=== PATIENT | female | born 1995 | race Two or more races ===

== ENCOUNTER 2023-12-08 09:08 | Observation (INO) | payer OTHER ==
[2023-12-08] MEDS ORDERED: PREN-96 PO (10:23)
== END 2023-12-08 10:45 | disposition home or self-care (01) ==
LOC: LDRP 09:08
PROVIDERS: ADMIT Obstetrics & Gynecology; ATTEND Obstetrics & Gynecology
DX: O24.419 Gestational diabetes mellitus in pregnancy, unspecified control (principal); Z3A.38 38 weeks gestation of pregnancy; Z88.0 Allergy status to penicillin
CPT/HCPCS: 59025; 76818; 81002; 82948; 82962; 94760; G0378

== ENCOUNTER 2023-12-15 10:03 | Observation (INO) | payer OTHER ==
[~2023-12-15 10:03] MED LIST: PREN-96 PO
== END 2023-12-15 11:28 | disposition home or self-care (01) ==
LOC: LDRP 10:03
PROVIDERS: ADMIT Obstetrics & Gynecology; ATTEND Obstetrics & Gynecology
DX: O24.419 Gestational diabetes mellitus in pregnancy, unspecified control (principal); Z3A.39 39 weeks gestation of pregnancy
CPT/HCPCS: 59025; 76818; 81002; 82948; 82962; 94760; G0378

== ENCOUNTER 2023-12-21 18:00 | Inpatient (IN) | payer OTHER ==
[~2023-12-21] VITALS: Ht 162.6 cm; Wt 97.5 kg
[2023-12-21] MEDS ORDERED: LIDOCAINE 2%HCL (LOCAL ANESTH.) INJ 20ML MDV IJ PRN (18:30)
[2023-12-21] MEDS ORDERED: BUTORPHANOL TARTRATE 2 MG/1 ML VIAL IV PRN (18:30)
[2023-12-21 19:26] LABS: Basophils # (auto) 0 10 ^3/uL (0-0.2); Eosinophils # (auto) 0.1 10 ^3/uL (0-0.8); Hemoglobin 11.1 g/dL (12.2-16.2); Monocytes # (auto) 0.7 10 ^3/uL (0-1.3); White Blood Cell 9.8 10^3/uL (4.4-10.8)
[2023-12-21 19:28] LABS: Basophils % (auto) 0.3 % (0.0-2.0); Eosinophils % (auto) 1.3 % (0.0-7.0); Hematocrit 33.7 % (36.0-46.0); Lymphocytes # (auto) 1.9 10 ^3/uL (0.4-5.4); Lymphocytes % (auto) 19.4 % (10.0-50.0); Mean Corpuscular Hemoglobin 24.3 pg (28.0-32.0); Mean Corpuscular Hgb Conc. 32.9 g/dL (32.0-36.0); Monocytes % (auto) 6.6 % (0.0-12.0); Neutrophils # (auto) 7.1 10 ^3/uL (1.6-8.6); Neutrophils % (auto) 72.4 % (37.0-80.0); Nucleated Red Blood Cells % 0.1 %; Platelet Count (auto) 329 10^3/uL (140-450); Red Blood Cells 4.56 10^6/uL (4.0-5.20); Red Cell Distribution Width 15.7 % (11.8-14.3)
[2023-12-21 19:46] LABS: INR 0.92 (0.9-1.15); Partial Thromboplastin Time 24.6 SEC (24.5-34.5); Prothrombin Time 9.8 sec (9.3-11.8)
[2023-12-21 19:48] LABS: Alanine Aminotransferase 14 U/L (7-40); Albumin 3.8 g/dL (3.2-4.8); Alkaline Phosphatase 170 U/L (46-116); Anion Gap 8 (5-15); Aspartate Aminotransferase 12 U/L (13-40); BUN/Creatinine Ratio 14.9 (10.0-20.0); Bilirubin, Total 0.2 mg/dL (0.2-1.0); Blood Urea Nitrogen 10 mg/dL (9-23); Calcium 9.3 mg/dL (8.7-10.4); Carbon Dioxide 21 mmol/L (20-30); Chloride 107 mmol/L (98-107); Glucose 110 mg/dL (74-106); Potassium 3.8 mmol/L (3.5-5.1); Sodium 136 mmol/L (136-145); Total Protein 6.8 g/dL (5.7-8.2)
[2023-12-21 21:03] LABS: Amphetamine Screen, Urine Neg (NEGATIVE)
[2023-12-21 21:04] LABS: Barbiturate Scree,Urine Neg (NEGATIVE); Benzodiazephine Screen, Urine Neg (NEGATIVE); Cannabinoid Screen, Urine Neg (NEGATIVE); Cocaine Screen, Urine Neg (NEGATIVE); Opiate Scree,Urine Neg (NEGATIVE); Phencyclidine Screen, Urine Neg (NEGATIVE)
[2023-12-21 21:31] LABS: Urine Amorphous Crystal FEW /hpf (None Seen); Urine Bacteria MANY /hpf (None Seen); Urine Blood Negative /uL (Negative); Urine Clarity Turbid (Clear); Urine Color Yellow (Yellow); Urine Mucus FEW (None Seen); Urine Protein, UAD TRACE (Negative); Urine Specific Gravity 1.024 (1.001-1.035); Urine Urobilinogen Normal (Negative); Urine WBC 12 /hpf (0 - 5)
[2023-12-21] MEDS: PHISODERM TOP SOLN 240ML BTL TOP PRN (21:32)
[2023-12-21] MEDS: DERMOPLAST 60ML BOTTLE TOP PRN (21:33)
[2023-12-21] MEDS: WITCH HAZEL-GLYCERIN PAD TOP PRN (21:33)
[2023-12-21] MEDS ORDERED: ACCU-CHEK COMFORT CURVE STRIP VI SCH (22:30)
[2023-12-21] MEDS: miSOPROStol 50 MCG per PRE-CUT 1/2 TAB PO PRN (22:43)
[2023-12-22] MEDS: LACT. RINGERS/OXYTOCIN 20UNITS 500 ML IV ONE ×2 (01:15→01:45)
[2023-12-22] MEDS: LACTATED RINGER'S 1,000 ML IV SCH (03:16)
[2023-12-22] MEDS: BUTORPHANOL TARTRATE 2 MG/1 ML VIAL IV PRN (17:35)
[2023-12-22] MEDS ORDERED: TERBUTALINE SULFATE 1 MG/ML 1ML VIAL SC PRN (18:45)
[2023-12-22] MEDS: NALOXONE HCL 0.4 MG/ML VIAL IV ONE (20:30)
[2023-12-22] MEDS: ePHEDrine SULFATE 50 MG/ML AMP IV ONE (20:30)
[2023-12-22] MEDS: LACTATED RINGER'S 1,000 ML IV STA (21:59)
[2023-12-22] MEDS: ROPIVACAINE HCL 200 ML ONE (22:02)
[2023-12-22] MEDS: LACT. RINGERS/OXYTOCIN 20UNITS 1,000 ML IV SCH (23:01)
[2023-12-23] VITALS (21 sets, daily range): BP systolic 92–109; BP diastolic 55–76; PULSE 72–98; RESP 14–18; TEMP 98.4–100.5; O2SAT 94–98
[2023-12-23] MEDS: D5W/LACTATED RINGERS 1,000 ML IV ONE (00:40)
[2023-12-23] MEDS: EPINEPHrine HCL 1 MG/1 ML AMP ONE (03:55)
[2023-12-23] MEDS: LIDOCAINE HCL 2 %PF INJ 10ML AMP IJ ONE (03:55)
[2023-12-23] MEDS ORDERED: DexAMETHasone SOD PHOS 10MG/1ML VIAL INJ ONE (03:58)
[2023-12-23] MEDS ORDERED: ONDANSETRON HCL 4 MG/2 ML VIAL ONE (03:58)
[2023-12-23] MEDS ORDERED: KETOROLAC TROMETH 30 MG/ML 1ML VIAL ONE (03:58)
[2023-12-23] MEDS ORDERED: LIDOCAINE 1% (LOCAL ANESTH.) PF 5ml SDV ONE (03:58)
[2023-12-23] MEDS ORDERED: MORPHINE SULF PF 5 MG/10 ML VIAL ONE (03:59)
[2023-12-23] MEDS: LACTATED RINGER'S 1,000 ML IV ONE (04:00)
[2023-12-23] MEDS ORDERED: fentaNYL CITRATE 100 MCG/2 ML VL ONE (04:00)
[2023-12-23] MEDS: SODIUM CITR/CITRIC ACID ORAL SOLN 30 ML PO ONE (04:00)
[2023-12-23] MEDS ORDERED: oxyTOCIN 10 UNIT/ML 10ML VIAL ONE (04:00)
[2023-12-23] MEDS: ceFAZolin 2 GM/D5W50ml 50 ML IV ONE (04:00)
[2023-12-23] MEDS: METOCLOPRAMIDE HCL 5MG/ml INJ 2ml VIAL IV ONE (04:00)
[2023-12-23] MEDS ORDERED: SODIUM BICARB 8.4% 50Meq/50ml SYR Vial IV ONE (04:01)
[2023-12-23] MEDS ORDERED: PHENYLEPHRINE HCL 10 MG/ML VL ONE (04:15)
[2023-12-23] MEDS ORDERED: SODIUM CHLORIDE LOCK 10 ML ONE (04:15)
[2023-12-23] MEDS ORDERED: ceFAZolin 1GM VL ONE (04:21)
[2023-12-23] MEDS ORDERED: ceFAZolin 1GM/50ML 50 ML IV SCH (05:15)
[2023-12-23] MEDS: NALBUPHINE HCL 10 MG/1ml INJECTION IV ONE (05:15)
[2023-12-23] MEDS: LACT. RINGERS/OXYTOCIN 20UNITS 1,000 ML IV ONE (05:15)
[2023-12-23] MEDS: GUM (CHEWING) 1 GUM CHEW CHEW ONE (05:15)
[2023-12-23] MEDS ORDERED: SIMETHICONE 80 MG CHEWABLE TABLET PO PRN (05:15)
[2023-12-23] MEDS ORDERED: diphenhdrAMINE HCL 50 MG/1 ML VL IV PRN (05:15)
[2023-12-23] MEDS ORDERED: MORPHINE SULFATE 4 MG/ML SYR/VIAL IV PRN (05:15)
[2023-12-23] MEDS ORDERED: KETOROLAC TROMETH 30 MG/ML 1ML VIAL IV PRN (05:15)
[2023-12-23] MEDS ORDERED: HYDROmorphone HCL 2 MG/ML VL/or syr IV PRN (05:15)
[2023-12-23] MEDS ORDERED: NALOXONE HCL 0.4 MG/ML VIAL IV PRN (05:15)
[2023-12-23] MEDS ORDERED: ONDANSETRON HCL 4 MG/2 ML VIAL IV PRN ×2 (05:15)
[2023-12-23 07:06] LABS: RPR Non Reactive (Non Reactive)
[2023-12-23] MEDS: ACETAMINOPHEN IV 1000 MG/100ML (10MG/ML) IV PRN (08:08)
[2023-12-23] MEDS: ceFAZolin 1GM/50ML 50 ML IV SCH (12:47)
[2023-12-23] MEDS: DOCUSATE SOD 100 MG CAP PO SCH (21:52)
[2023-12-24] VITALS (10 sets, daily range): BP systolic 92–115; BP diastolic 52–78; PULSE 73–100; RESP 16–18; TEMP 97.9–99.5; O2SAT 95–99
[2023-12-24 06:16] LABS: Basophils # (auto) 0 10 ^3/uL (0-0.2); Basophils % (auto) 0.3 % (0.0-2.0); Eosinophils # (auto) 0.1 10 ^3/uL (0-0.8); Mean Corpuscular Volume 75.1 fL (80.0-100.0); Red Blood Cells 3.33 10^6/uL (4.0-5.20)
[2023-12-24 06:18] LABS: Eosinophils % (auto) 0.8 % (0.0-7.0); Hemoglobin 8.1 g/dL (12.2-16.2); Lymphocytes # (auto) 2.2 10 ^3/uL (0.4-5.4); Lymphocytes % (auto) 17.8 % (10.0-50.0); Mean Corpuscular Hemoglobin 24.4 pg (28.0-32.0); Mean Corpuscular Hgb Conc. 32.5 g/dL (32.0-36.0); Monocytes % (auto) 7.7 % (0.0-12.0); Neutrophils # (auto) 9.3 10 ^3/uL (1.6-8.6); Neutrophils % (auto) 73.4 % (37.0-80.0); Platelet Count (auto) 269 10^3/uL (140-450); Red Cell Distribution Width 15.8 % (11.8-14.3); White Blood Cell 12.6 10^3/uL (4.4-10.8)
[2023-12-24] MEDS: HYDROcodone-ACET 5/325MG TAB PO PRN (07:58)
[2023-12-24] MEDS ORDERED: BISACODYL 10 MG RECT SUPP PR PRN (08:00)
[2023-12-24] MEDS: DOCUSATE SOD 100 MG CAP PO SCH (10:02)
[2023-12-24] MEDS: FERROUS SULFATE 325mg EC TAB PO SCH (10:02)
[2023-12-24] MEDS: DOCUSATE CALCIUM 240 MG CAP PO SCH (10:02)
[2023-12-24] MEDS ORDERED: FER325T PO (11:14)
[2023-12-24] MEDS ORDERED: HYDR-4902 PO (11:14)
[2023-12-24] MEDS: SIMETHICONE 80 MG CHEWABLE TABLET PO SCH (12:00)
[2023-12-25 03:30] VITALS: BP 109/70; PULSE 94; RESP 16; TEMP 98.6; O2SAT 98
[2023-12-25 06:07] LABS: Eosinophils # (auto) 0.2 10 ^3/uL (0-0.8); Eosinophils % (auto) 2.2 % (0.0-7.0); Hemoglobin 8.9 g/dL (12.2-16.2); Lymphocytes # (auto) 2.1 10 ^3/uL (0.4-5.4); Monocytes # (auto) 0.8 10 ^3/uL (0-1.3); Monocytes % (auto) 7.6 % (0.0-12.0); Nucleated Red Blood Cells % 0.1 %
[2023-12-25 06:09] LABS: Basophils # (auto) 0 10 ^3/uL (0-0.2); Basophils % (auto) 0.4 % (0.0-2.0); Hematocrit 26.5 % (36.0-46.0); Lymphocytes % (auto) 20.1 % (10.0-50.0); Mean Corpuscular Hemoglobin 24.8 pg (28.0-32.0); Mean Corpuscular Hgb Conc. 33.4 g/dL (32.0-36.0); Mean Corpuscular Volume 74.1 fL (80.0-100.0); Neutrophils # (auto) 7.2 10 ^3/uL (1.6-8.6); Neutrophils % (auto) 69.7 % (37.0-80.0); Platelet Count (auto) 284 10^3/uL (140-450); Red Blood Cells 3.58 10^6/uL (4.0-5.20); Red Cell Distribution Width 16.3 % (11.8-14.3); White Blood Cell 10.4 10^3/uL (4.4-10.8)
[2023-12-25 06:30] VITALS: BP 109/74; PULSE 87; RESP 20; TEMP 98.6; O2SAT 98
[2023-12-25 11:11] VITALS: BP 111/73; PULSE 98; RESP 18; TEMP 99; O2SAT 98
[2023-12-25] MEDS: HYDROcodone-ACET 5/325MG TAB PO PRN (11:57)
[2023-12-25 15:38] VITALS: BP 115/75; PULSE 102; RESP 19; TEMP 98.8; O2SAT 97
== END 2023-12-25 15:38 | disposition home or self-care (01) | DRG 788 ==
LOC: LDRP 18:00
PROVIDERS: ADMIT Obstetrics & Gynecology; ATTEND Obstetrics & Gynecology
PROC: 10D00Z1 Extraction of Products of Conception, Low, Open Approach (ICD-10-PCS; principal; 2023-12-22)
DX: O24.429 Gestational diabetes mellitus in childbirth, unspecified control (principal); Z3A.40 40 weeks gestation of pregnancy; O61.9 Failed induction of labor, unspecified; O33.9 Maternal care for disproportion, unspecified; O62.0 Primary inadequate contractions; Z37.0 Single live birth; Z88.6 Allergy status to analgesic agent; Z88.0 Allergy status to penicillin
CPT/HCPCS: 36415; 59025; 62282; 80053; 80307; 81001; 82948; 82962; 84439; 84443; 85025; 85610; 85730; 86592; 86803; 86850; 86900; 86901; 94760; 94762; 96360; 96361; 96365; 96366; 96374; G0378; J0131; J0171; J0690; J1100; J1885; J2405; J2590